=== PATIENT | female | born 1960 | race Caucasian/White ===

== ENCOUNTER 2018-07-04 15:59 | Emergency (ER) | payer OTHER ==
[~2018-07-04] VITALS: Ht 160 cm; Wt 63.5 kg
[2018-07-04] MEDS ORDERED: LOTREL 5-10 MG1 CAP (16:20)
== END 2018-07-04 17:47 | disposition home or self-care (01) ==
LOC: ER 15:59
DX: S90.122A Contusion of left lesser toe(s) without damage to nail, initial encounter (principal); W22.8XXA Striking against or struck by other objects, initial encounter; Y93.89 Activity, other specified; Y92.89 Other specified places as the place of occurrence of the external cause; Y99.8 Other external cause status

== ENCOUNTER → 2019-08-31 | Emergency (ER) | payer OTHER ==
[~2019-08-31] VITALS: Ht 160 cm; Wt 65.8 kg
[~2019-08-31] MED LIST: LOTREL 5-10 MG1 CAP
== END | disposition home or self-care (01) ==
LOC: ER 19:26
DX: B34.9 Viral infection, unspecified (principal)

== ENCOUNTER 2021-05-29 21:03 | Emergency (ER) | payer OTHER ==
[~2021-05-29] VITALS: Ht 157.5 cm; Wt 51.7 kg
[2021-05-29] MEDS ORDERED: ZOFRAN4 MG PO (23:08)
[2021-05-29] MEDS ORDERED: PROTONIX40 MG PO (23:08)
[2021-05-29] MEDS ORDERED: MACROBID 100 M100 MG PO (23:08)
== END 2021-05-29 23:39 | disposition home or self-care (01) ==
LOC: ER 21:03
DX: R11.0 Nausea (principal); N39.0 Urinary tract infection, site not specified

== ENCOUNTER → 2022-12-26 | Emergency (ER) | payer OTHER ==
[~2022-12-26] VITALS: Ht 162.6 cm; Wt 54.4 kg
[~2022-12-26] MED LIST changes: +MACROBID 100 M100 MG PO; +PROTONIX40 MG PO; +ZOFRAN4 MG PO
== END | disposition home or self-care (01) ==
LOC: ER 15:25
DX: T50.995A Adverse effect of other drugs, medicaments and biological substances, initial encounter (principal); Y92.89 Other specified places as the place of occurrence of the external cause; I10 Essential (primary) hypertension

== ENCOUNTER → 2024-04-22 | Emergency (ER) | payer OTHER ==
[~2024-04-22] VITALS: Ht 157.5 cm; Wt 59.0 kg
[~2024-04-22] MED LIST changes: +LAMOTRIGINE5 MG PO; +LIPITOR20 MG PO; +PROLIA60 MG/1 ML
== END | disposition left against medical advice (07) ==
LOC: ER 12:54
DX: Z53.21 Procedure and treatment not carried out due to patient leaving prior to being seen by health care provider (principal)

== ENCOUNTER → 2024-07-06 07:47 | Outpatient (CLI) | payer OTHER ==
[2024-07-06 09:31] LABS: PH,URINE 7.5 (5.0-8.0); URINE APPEARANCE Clear; URINE BILIRRUBIN Negative (NEGATIVE); URINE BLOOD Negative; URINE COLOR Yellow; URINE GLUCOSE Negative (NEGATIVE); URINE KETONE Negative (NEGATIVE); URINE LEUKOCYTE Negative; URINE NITRATE Negative; URINE PROTEIN Negative (NEGATIVE); URINE UROBILINOGEN 0.2 E.U./dl
[2024-07-06 09:33] LABS: HEMATOCRIT 37.9 % (36.0-45.00); HEMOGLOBIN 12.5 g/dL (12.0-15.00); MEAN CELL VOLUME 90.3 fL (80.00-100.00); MEAN CORPUSCULAR HEMOGLOBIN 29.7 pg (27.00-32.0); MEAN CORPUSCULAR HGB CONC 32.9 g/dl (32.0-36.0); PLATELET COUNT 366 K/uL (150-450); RED BLOOD COUNT 4.19 M/uL (4.00-6.00); RED CELL DISTRIBUTION WIDTH 14.1 % (11.5-14.5)
[2024-07-06 09:35] LABS: URINE BACTERIA 17.6 uL (0.0-1933); URINE RBC 19.2 uL (0.0-20.8)
[2024-07-06 09:52] LABS: URINE CAST 0.15 uL (0.0-1.40); URINE EPITHELIAL CELLS 1.2 uL (0.0-38.8); URINE WBC 1.3 uL (0.0-23.2)
[2024-07-06 10:40] LABS: ALBUMIN 4.3 gm/dL (3.4-5.0); BILIRUBIN TOTAL 0.52 mg/dL (0.3-1.2); CALCIUM 9.7 mg/dL (8.5-10.1); CHOL HDL RATIO 2.6 (0-5.0); CREATININE SERUM 0.61 mg/dL (0.55-1.02); GFR 99.38; GLOBULINA 3.1 G/DL (2.4-3.5); POTASSIUM 4.03 mEq/L (3.5-5.1); TOTAL PROTEIN 7.4 gm/dL (6.4-8.2); TSH 1.26 uIU/mL (0.358-3.74)
== END | disposition home or self-care (01) ==
LOC: LAB 07:47
PROVIDERS: ATTEND Specialist
DX: D50.8 Other iron deficiency anemias (principal); N39.0 Urinary tract infection, site not specified; E11.42 Type 2 diabetes mellitus with diabetic polyneuropathy; E78.2 Mixed hyperlipidemia; E03.8 Other specified hypothyroidism; E55.9 Vitamin D deficiency, unspecified; E21.0 Primary hyperparathyroidism; E50.8 Other manifestations of vitamin A deficiency; E27.2 Addisonian crisis; E05.00 Thyrotoxicosis with diffuse goiter without thyrotoxic crisis or storm; E06.3 Autoimmune thyroiditis; E22.1 Hyperprolactinemia; E28.2 Polycystic ovarian syndrome; E29.1 Testicular hypofunction

== ENCOUNTER 2025-07-06 09:57 | Outpatient (CLI) | payer OTHER ==
[2025-07-06 11:45] LABS: BASO % 0.5 % (0.1-1.2); EOS # 0.16 (0.04-0.54); EOS % 2.4 % (0.7-7.0); LYMPH # 2.25 (1.18-3.74); LYMPH % 33.8 % (19.3-53.1); MEAN PLATELET VOLUME 10.50 fl (9.4-12.4); MONO # 0.52 (0.24-0.82); MONO % 7.8 % (4.7-12.5); NEUT # 3.69 (1.56-6.13); NEUT % 55.3 % (34.0-71.1); RED CELL DISTRIBUTION WIDTH 13.0 % (11.6-14.4)
[2025-07-06 12:12] LABS: URINE APPEARANCE Clear; URINE BILIRRUBIN Negative (NEGATIVE); URINE BLOOD NHT; URINE COLOR Yellow; URINE GLUCOSE Negative (NEGATIVE); URINE KETONE Negative (NEGATIVE); URINE LEUKOCYTE Small; URINE NITRATE Negative; URINE PROTEIN Negative (NEGATIVE); URINE UROBILINOGEN 0.2 E.U./dl
[2025-07-06 12:17] LABS: URINE BACTERIA 31.1 uL (0.0-1933); URINE EPITHELIAL CELLS 9.3 uL (0.0-38.8); URINE RBC 5.8 uL (0.0-20.8); URINE WBC 3.8 uL (0.0-23.2)
[2025-07-06 12:26] LABS: URINE CAST 0.00 uL (0.0-1.40)
[2025-07-06 14:57] LABS: BUN CREA RATIO 19.0 (7.0-25.0); CHOL HDL RATIO 2.6 (0-5.0); CREATININE SERUM 0.62 mg/dL (0.55-1.02); GFR 97.22; GLUCOSE FASTING 85.0 mg/dL (65-100); HDL 67.0 mg/dl (40-60); LDL 92.0 mg/dl (0-130); OSMOLALITY SERUM 284.0 MOSM/KG (275-295); VLDL 16.0 (0-39)
[2025-07-06 14:58] LABS: ALT/SGPT 25.0 U/L (12-78); AST/SGOT 12.0 U/L (15-37); BILIRUBIN TOTAL 0.56 mg/dL (0.3-1.2); GLOBULINA 2.7 G/DL (2.4-3.5); TSH 0.913 uIU/mL (0.358-3.74)
== END 2025-07-06 10:02 | disposition home or self-care (01) ==
LOC: LAB 09:57
PROVIDERS: ATTEND Specialist
DX: D50.8 Other iron deficiency anemias (principal); N39.0 Urinary tract infection, site not specified; E11.42 Type 2 diabetes mellitus with diabetic polyneuropathy; E11.9 Type 2 diabetes mellitus without complications; E78.2 Mixed hyperlipidemia; E03.8 Other specified hypothyroidism; E55.9 Vitamin D deficiency, unspecified; E21.0 Primary hyperparathyroidism; E50.8 Other manifestations of vitamin A deficiency; E27.2 Addisonian crisis; E05.00 Thyrotoxicosis with diffuse goiter without thyrotoxic crisis or storm; E06.3 Autoimmune thyroiditis; E22.1 Hyperprolactinemia; E28.2 Polycystic ovarian syndrome; E29.1 Testicular hypofunction